=== PATIENT | female | born 1960 | race Caucasian/White ===

== ENCOUNTER 2016-10-25 14:52 | Observation (INO) | payer OTHER ==
[2016-10-25] MEDS ORDERED: SODIUM CHLORIDE 1,000 ML IV STA ×2 (15:00→17:25)
[2016-10-25 15:08] VITALS: BMI 23.6
--- NOTE | 2016-10-25 15:14 | PDOC ---
History of Present Illness - General History Source: Patient, Old Records Exam Limitations: No Limitations - History of Present Illness Initial Comments: The patient is a 56-year-old female, with a significant past medical history of SVT (status post ablation 2013) who presents with tachycardia since this morning. The patient reports that she woke up at 0530 today with indigestion and pressure-like chest pain . She states that the symptoms are persistent. She reports developing palpitations and notes that they are exacerbated on exertion. The patient notes a recent chip fracture of the left ankle and wears an aircast but denies calf pain. She denies recent illnesses, fevers, chills, cough, vomiting. Denies history of oral contraceptive use, pulmonary embolisms, unilateral calf swelling. PAST MEDICAL HISTORY: SVT, recent frequent UTIs PAST SURGICAL HISTORY: Hysterectomy FAMILY HISTORY: Mother: 2 MT; First at age 65. 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[employer] <Andrew Garcia - Last Filed: 10/25/16 19:02> - General History Source: Patient Exam Limitations: No Limitations <Macario Navarro - Last Filed: 10/25/16 19:06> - General Chief Complaint: Palpitations Stated Complaint: PALPITATIONS Time Seen by Provider: 10/25/16 15:00 Past History <Andrew Garcia - Last Filed: 10/25/16 19:02> - Past Medical History Cardiac Disorders: Yes (SVT/MVP) Diabetes: Yes Hypercholesterolemia: Yes - Psycho/Social/Smoking Cessation Hx Anxiety: Yes Suicidal Ideation: No Smoking Status: No Smoking History: Never smoked Have you smoked in the past 12 months: No Number of Cigarettes Smoked Daily: 0 Hx Alcohol Use: No Substance Use Type: None <Macario Navarro - Last Filed: 10/25/16 19:06> - Past Medical History Allergies/Adverse Reactions: Allergies Allergy/AdvReac Type Severity Reaction Status Date / Time exenatide microspheres Allergy Intermediate muscle Verified 10/25/16 15:17 [From Bydureon] welts/lumps very pruritic celecoxib [From Celebrex] Allergy Verified 10/25/16 15:17 erythromycin base Allergy Verified 10/25/16 15:18 levofloxacin [From Levaquin] Allergy Verified 10/25/16 15:17 morphine Allergy Verified 10/25/16 15:17 nitrofurantoin Allergy Verified 10/25/16 15:17 [From Macrobid] nitrofurantoin Allergy Verified 10/25/16 15:17 macrocrystalline [From Macrobid] Penicillins Allergy Verified 10/25/16 15:17 Sulfa (Sulfonamide Allergy Verified 10/25/16 15:17 Antibiotics) msg Allergy Uncoded 10/25/16 15:17 Home Medications: Ambulatory Orders Liraglutide [Victoza -] 1.2 mg SQ DAILY@0700 10/25/16 Lisinopril 5 mg PO DAILY 10/25/16 Metformin HCl [Glucophage] 2,000 mg PO HS 10/25/16 Simvastatin 20 mg PO HS 10/25/16 Solifenacin Succinate [Vesicare -] 5 mg PO DAILY 10/25/16 Ubidecarenone [Coq-10] 100 mg PO 10/25/16 Review of Systems - Review of Systems Able to Perform ROS?: Yes Comments:: GENERAL/CONSTITUTIONAL: No fever or chills. No weakness. HEAD, EYES, EARS, NOSE AND THROAT: No change in vision. No ear pain or discharge. No sore throat. CARDIOVASCULAR: (+) Chest pain, palpitations, dyspnea on exertion. RESPIRATORY: No cough, wheezing, or hemoptysis. GASTROINTESTINAL: No nausea, vomiting, diarrhea or constipation. GENITOURINARY: No dysuria, frequency, or change in urination. MUSCULOSKELETAL: (+) No muscle swelling or pain. No neck or back Left ankle aircast. SKIN: No rash NEUROLOGIC: No headache, vertigo, loss of consciousness, or change in strength/ sensation. ENDOCRINE: No increased thirst. No abnormal weight change. HEMATOLOGIC/LYMPHATIC: No anemia, easy bleeding, or history of blood clots. ALLERGIC/IMMUNOLOGIC: No hives or skin allergy. <Andrew Garcia - Last Filed: 10/25/16 19:02> *Physical Exam - Vital Signs Last Vital Signs Temp Pulse Resp BP Pulse Ox 98 F 126 H 20 132/100 100 10/25/16 14:54 10/25/16 15:23 10/25/16 15:23 10/25/16 15:23 10/25/16 15:23 - Physical Exam Comments: GENERAL: Awake, alert, and fully oriented, in no acute distress HEAD: No signs of trauma EYES: PERRLA, EOMI, sclera anicteric, conjunctiva clear ENT: Auricles normal inspection, hearing grossly normal, nares patent, oropharynx clear without exudates. Moist mucosa NECK: Normal ROM, supple, no lymphadenopathy, JVD, or masses LUNGS: Breath sounds equal, clear to auscultation bilaterally. No wheezes, and no crackles HEART: Tachycardia regular rhythm, normal S1 and S2, no murmurs, rubs or gallops ABDOMEN: Soft, nontender, normoactive bowel sounds. No guarding, no rebound. No masses EXTREMITIES: (+) With left ankle aircast otherwise, Normal range of motion, no edema. No clubbing or cyanosis. No cords, erythema, or tenderness NEUROLOGICAL: Cranial nerves II through XII grossly intact. Normal speech, normal gait SKIN: Warm, Dry, normal turgor, no rashes or lesions noted. <Andrew Garcia - Last Filed: 10/25/16 19:02> Heart Score/ECG Review #1 ECG reviewed & interpreted by me at: 14:55 10/25/16 15:07 NSr 125, no std/gianna, normal axis, normal intervals, QTC 447 msec <Macario Navarro - Last Filed: 10/25/16 19:06> ED Treatment Course - LABORATORY CBC & Chemistry Diagram: 10/25/16 15:06 10/25/16 15:06 - ADDITIONAL ORDERS Additional order review: Laboratory Results 10/25/16 15:10 Urine Color Yellow Urine Appearance Clear Urine pH 5.5 Ur Specific [place] <= 1.005 Urine Protein Negative Urine Glucose (UA) Negative Urine Ketones Negative Urine Blood Negative Urine Nitrite Negative Urine Bilirubin Negative Urine Urobilinogen 0.2 e.u/dl Ur Leukocyte Esterase Trace 10/25/16 15:06 RBC 4.67 MCV 84.2 MCHC 33.3 RDW 12.6 MPV 9.7 Neutrophils % Y Lymphocytes % Y - RADIOLOGY Radiograph Interpretation: 10/25/16 19:02 EXAM#: TYPE/EXAM: RESULT: [id number] CT/CHEST CTA HISTORY PROVIDED: Rule out PE. TECHNIQUE: Sequential axial images were obtained from the thoracic inlet through the domes of the diaphragm following the administration of intravenous contrast material. CTA pulmonary embolism protocol was utilized, including coronal and oblique coronal MIP images. There is good opacification of the central pulmonary vasculature with no filling defects suspicious for pulmonary embolism. The lung mckeon are free of pulmonary masses, areas of acute consolidation or pleural effusions. No mediastinal masses, fluid collections or lymphadenopathy are identified. The heart is not enlarged. Evaluation of the upper abdomen demonstrates no acute abnormalities. IMPRESSION: 1. No evidence of pulmonary embolism. 2. No acute pathology within the chest. Reported By: Oscar Limon MD 10/25/16 [id number] <Andrew Garcia - Last Filed: 10/25/16 19:02> - LABORATORY CBC & Chemistry Diagram: 10/25/16 15:06 10/25/16 15:06 <Macario Navarro - Last Filed: 10/25/16 19:06> Medical Decision Making - Medical Decision Making 10/25/16 18:[address] Medrano placed. Dr. Delacruz is environmental services manager. Awaiting call back. 10/25/16 18:31 Dr. Delacruz called into ED. Case discussed. Agreed to admit to hospitalist. <Andrew Garcia - Last Filed: 10/25/16 19:02> - Medical Decision Making 10/25/16 15:07 A portion of this note was documented by scribe services under my direction. I have reviewed the details of the note, within reason, and agree with the documentation with the following case summary and management plan written by me. Patient treated in the ED. Nursing notes are reviewed and incorporated into the medical decision-making. Vital signs reviewed. Peripheral IV access obtained by the nurse, laboratory studies are drawn and sent, reviewed and interpreted by myself. 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 Patient reports that she woke up with indigestion and pressure-like chest pain that pleuritic. She states that the symptoms are persistent. She developed some palpitations that worsened with exertion. Denies recent illnesses, fevers, chills, cough, vomiting. Denies history of oral contraceptive use, pulmonary embolisms, unilateral calf swelling. Patient does have a recent check fracture of the left ankle that she wears an Aircast but denies calf pain. Patient's EKG demonstrates sinus tachycardia without acute changes. However, patient does have a strong family history where her mother had from an [place] in the early 60s. Patient has not had a recent stress test or echocardiogram. The patient did follow up with Dr. Medrano when she had an SVT. We'll need to rule out myocardial infarction. We will also send a d-dimer to rule out PE. Labs. And admit to the hospital for further evaluation. 10/25/16 18:46 CBC, BMP 10/25/16 15:06 10/25/16 15:06 CMP Sodium 135 mmol/L (136-145) L 10/25/16 15:06 Potassium 4.8 mmol/L (3.5-5.1) D 10/25/16 15:06 Chloride 99 mmol/L (98-107) 10/25/16 15:06 Carbon Dioxide 24 mmol/L (22-28) 10/25/16 15:06 Anion Gap 12 (8-16) 10/25/16 15:06 BUN 19 mg/dl (7-18) H D 10/25/16 15:06 Creatinine 0.9 mg/dl (0.6-1.3) D 10/25/16 15:06 Creat Clearance w eGFR > 60 (>60) 10/25/16 15:06 Random Glucose 199 mg/dl (74-106) H D 10/25/16 15:06 Calcium 9.6 mg/dl (8.4-10.2) 10/25/16 15:06 Magnesium 1.6 mg/dL (1.8-2.4) L 10/25/16 15:06 Total Bilirubin 0.9 mg/dl (0.2-1.0) D 10/25/16 15:06 AST 19 U/L (10-42) 10/25/16 15:06 ALT 17 U/L (10-40) 10/25/16 15:06 Alkaline Phosphatase 62 U/L (32-92) 10/25/16 15:06 Creatine Kinase 77 IU/L (26-140) 10/25/16 15:06 Troponin I < 0.03 ng/ml (0.03-0.50) L 10/25/16 15:06 Total Protein 6.7 g/dl (6.4-8.3) 10/25/16 15:06 Albumin 4.3 g/dl (3.5-5.0) 10/25/16 15:06 TSH 1.34 uIU/ml (0.358-3.74) D 10/25/16 15:06 INR, PTT INR 1.13 (0.82-1.09) 10/25/16 15:07 D-dimer elevated. CTA Chest ordered to r/o PE. Pt was given 1.5L of IVF but pt remains persistent tachycardic. The patient still requires a cardiac and PE workup. Case discussed with [facility] hospitalist and Dr. Delacruz. Will admit the patient to tele admission for chest pain. Case discussed in detail with admitting physician including history, physical exam and ancillary studies. Admitting physician has assumed care for the patient, will follow all pending diagnostics and will complete the evaluation and treatment. 10/25/16 19:06 CTA reviewed. No PE. <Macario Navarro - Last Filed: 10/25/16 19:06> *DC/Admit/Observation/Transfer - Attestations Scribe Attestion: Documentation prepared by Andrew Garcia, acting as medical device assembler for Macario Navarro MD. <Andrew Garcia - Last Filed: 10/25/16 19:02> - Discharge Dispostion Admit: Yes <Macario Navarro - Last Filed: 10/25/16 19:06> Diagnosis at time of Disposition: Tachycardia Chest pain Qualifiers: Chest pain type: unspecified Qualified Code(s): R07.9 - Chest pain, unspecified - Discharge Dispostion Condition at time of disposition: Fair
[2016-10-25 15:26] LABS: PH,URINE 5.5 (4.5-8); URINE APPEARANCE Clear; URINE BILIRUBIN Negative (NEGATIVE); URINE BLOOD Negative (NEGATIVE); URINE COLOR YELLOW; URINE GLUCOSE (UA) Negative (NEGATIVE); URINE KETONE Negative (NEGATIVE); URINE LEUK ESTERASE Trace (NEGATIVE); URINE NITRITE Negative (NEGATIVE); URINE PROTEIN Negative (NEGATIVE); URINE UROBILINOGEN 0.2 E.U/dl (0.2-1.0)
[2016-10-25 15:27] LABS: MCH 28.1 pg (25.7-33.7); MCHC 33.3 g/dl (32.0-36.0); MEAN CELL VOLUME 84.2 fl (80-96); MEAN PLT VOLUME 9.7 fl (7.5-11.1); PLATELET COUNT 230 K/MM3 (134-434); RDW 12.6 % (11.6-15.6); WHITE BLOOD COUNT 16.8 K/mm3 (4.0-10.8)
[2016-10-25 15:41] LABS: ACTIVATED PTT 28.4 SECONDS (24.0-38.9)
[2016-10-25 15:44] LABS: ALBUMIN 4.3 g/dl (3.5-5.0); ALK PHOS 62 U/L (32-92); ANION GAP 12 (8-16); BILIRUBIN,TOTAL 0.9 mg/dl (0.2-1.0); CALCIUM 9.6 mg/dl (8.4-10.2); CO2 24 mmol/L (22-28); CREATININE 0.9 mg/dl (0.6-1.3); GLUCOSE,RANDOM 199 mg/dl (74-106); MAGNESIUM 1.6 mg/dL (1.8-2.4); SGOT/AST 19 U/L (10-42); SGPT/ALT 17 U/L (10-40); TOT PROT 6.7 g/dl (6.4-8.3)
[2016-10-25 15:45] LABS: INR 1.13 (0.82-1.09); PROTHROMBIN TIME (PATIENT) 12.6 SEC (10.2-13.0)
[2016-10-25 15:47] LABS: CPK(DFH) 77 IU/L (26-140)
[2016-10-25 16:25] LABS: TROPONIN I (DFP) < 0.03 ng/ml (0.03-0.50)
[2016-10-25 17:32] LABS: THYROID STIMULATING HORMONE 1.34 uIU/ml (0.358-3.74)
[2016-10-25] MEDS ORDERED: ASPIRIN 81 MG CHEWABLE TABLETS PO ONE (17:40)
[2016-10-25] MEDS ORDERED: ASPIRIN 81 MG CHEWABLE TABLETS ONE (17:45)
[2016-10-25 18:00] LABS: PLATELET ESTIMATE ADEQUATE (NORMAL)
--- NOTE | 2016-10-25 20:15 | HP ---
CHIEF COMPLAINT: Chest Pain PCP: Dr. August HISTORY OF PRESENT ILLNESS: This is a 56 y/o woman with a significant medical history of SVT (Ablation 2013 ) Diabetes Mellitus, HLD. Who presents to the emergency department with pleuritic chest pain since 0530 am today. Patient reports the CP radiates across her chest, with SOB on exertion. She reports her resting HR 120-130 on exertion 155, while at work today. Patient reports having a fall 2 weeks ago, sustaining a chip bone to her left ankle, using an air cast. Patient reports having a recent tooth infection with pending root canal procedure. Patient reports having chills. Patient denies fever, AP, N/V/D, constipation, dysuria. Patient denies calf pain, swelling, warmth or redness. Patient reports having familial hx- Mother [place] x2. Patient has not had a recent Echo or Stress Test, nor has she seen a Waterproof Coating Machine Tender since her Ablation in 2013. ER course was notable for: (1) EKG ST (2) WBC 16.9 (3) Cardiac Enzymes Neg x1 (4) CTA- negative for PE Recent Travel: None PAST MEDICAL HISTORY: See HPI PAST SURGICAL HISTORY: Cardiac Ablation 2013 Bladder Mesh 2008 Bladder Lift 2001 Hysterectomy Social History: Smoking: Never Alcohol: Occasional Drugs: None Family History: Mother: [place] x2, Age 65, age 69 with 2nd [place], DM, HTN Allergies exenatide microspheres [From Bydureon] Allergy (Intermediate, Verified 10/25/16 15:17) muscle welts/lumps very pruritic celecoxib [From Celebrex] Allergy (Verified 10/25/16 15:17) erythromycin base Allergy (Verified 10/25/16 15:18) levofloxacin [From Levaquin] Allergy (Verified 10/25/16 15:17) morphine Allergy (Verified 10/25/16 15:17) nitrofurantoin [From Macrobid] Allergy (Verified 10/25/16 15:17) nitrofurantoin macrocrystalline [From Macrobid] Allergy (Verified 10/25/16 15:17 ) Penicillins Allergy (Verified 10/25/16 15:17) Sulfa (Sulfonamide Antibiotics) Allergy (Verified 10/25/16 15:17) msg Allergy (Uncoded 10/25/16 15:17) HOME MEDICATIONS: Home Medications Medication Instructions Recorded Liraglutide [Victoza -] 1.2 mg SQ DAILY@0700 10/25/16 Lisinopril 5 mg PO DAILY 10/25/16 Metformin HCl [Glucophage] 2,000 mg PO HS 10/25/16 Simvastatin 20 mg PO HS 10/25/16 Solifenacin Succinate [Vesicare -] 5 mg PO DAILY 10/25/16 Ubidecarenone [Coq-10] 100 mg PO 10/25/16 REVIEW OF SYSTEMS CONSTITUTIONAL: chills Absent: fever, diaphoresis, generalized weakness, malaise, loss of appetite, weight change HEENT: Absent: rhinorrhea, nasal congestion, throat pain, throat swelling, difficulty swallowing, mouth swelling, ear pain, eye pain, visual changes CARDIOVASCULAR: chest pain Absent: syncope, palpitations, irregular heart rate, lightheadedness, peripheral edema RESPIRATORY: dyspnea with exertion Absent: cough, shortness of breath, orthopnea, wheezing, stridor, hemoptysis GASTROINTESTINAL: Absent: abdominal pain, abdominal distension, nausea, vomiting, diarrhea, constipation, melena, hematochezia GENITOURINARY: Absent: dysuria, frequency, urgency, hesitancy, hematuria, flank pain, genital pain MUSCULOSKELETAL: Absent: myalgia, arthralgia, joint swelling, back pain, neck pain SKIN: Absent: rash, itching, pallor HEMATOLOGIC/IMMUNOLOGIC: Absent: easy bleeding, easy bruising, lymphadenopathy, frequent infections ENDOCRINE: Absent: unexplained weight gain, unexplained weight loss, heat intolerance, cold intolerance NEUROLOGIC: headache Absent: focal weakness or paresthesias, dizziness, unsteady gait, seizure, mental status changes, bladder or bowel incontinence PSYCHIATRIC: Absent: anxiety, depression, suicidal or homicidal ideation, hallucinations. PHYSICAL EXAMINATION Vital Signs - 24 hr 10/25/16 19:36 Pulse Rate [ 117 H Right Radial] Respiratory 18 Rate Blood Pressure 103/57 [Left Arm] O2 Sat by Pulse 97 Oximetry (%) GENERAL: Awake, alert, and fully oriented, in no acute distress. HEAD: Normal with no signs of trauma. EYES: Pupils equal, round and reactive to light, extraocular movements intact, sclera anicteric, conjunctiva clear. No lid lag. EARS, NOSE, THROAT: Ears normal, nares patent, oropharynx clear without exudates. Moist mucous membranes. NECK: Normal range of motion, supple without lymphadenopathy, JVD, or masses. LUNGS: Breath sounds equal, clear to auscultation bilaterally. No wheezes, and no crackles. No accessory muscle use. HEART: Tachycardiac rate and rhythm, normal S1 and S2 without murmur, rub or gallop. ABDOMEN: Soft, nontender, not distended, normoactive bowel sounds, no guarding, no rebound, no masses. No hepatomegaly or splenomegaly. MUSCULOSKELETAL: Normal range of motion at all joints. No bony deformities. No CVA tenderness. Tenderness to lateral aspect left foot UPPER EXTREMITIES: 2+ pulses, warm, well-perfused. No cyanosis. No clubbing. No peripheral edema. LOWER EXTREMITIES: 2+ pulses, warm, well-perfused. No calf tenderness. No peripheral edema. +aircast to LLE NEUROLOGICAL: Cranial nerves II-XII intact. Normal speech. Normal gait. PSYCHIATRIC: Cooperative. Good eye contact. Appropriate mood and affect. SKIN: Warm, dry, normal turgor, no rashes or lesions noted, normal capillary refill. Laboratory Results - last 24 hr 10/25/16 10/25/16 10/25/16 15:06 15:06 15:06 WBC 16.8 H D RBC 4.67 Hgb 13.1 Hct 39.3 MCV 84.2 MCHC 33.3 RDW 12.6 Plt Count 230 D MPV 9.7 Neutrophils % 92.0 H D Lymphocytes % 2.0 L D Monocytes % 6.0 Platelet Estimate Adequate INR PTT (Actin FS) D-Dimer Sodium 135 L Potassium 4.8 D Chloride 99 Carbon Dioxide 24 Anion Gap 12 BUN 19 H D Creatinine 0.9 D Creat Clearance w eGFR > 60 POC Glucometer Random Glucose 199 H D Calcium 9.6 Magnesium 1.6 L Total Bilirubin 0.9 D AST 19 ALT 17 Alkaline Phosphatase 62 Creatine Kinase 77 Troponin I < 0.03 L Total Protein 6.7 Albumin 4.3 TSH 1.34 D Urine Color Urine Appearance Urine pH Ur Specific [place] Urine Protein Urine Glucose (UA) Urine Ketones Urine Blood Urine Nitrite Urine Bilirubin Urine Urobilinogen Ur Leukocyte Esterase 10/25/16 10/25/16 10/25/16 15:07 15:10 22:15 WBC RBC Hgb Hct MCV MCHC RDW Plt Count MPV Neutrophils % Lymphocytes % Monocytes % Platelet Estimate INR 1.13 PTT (Actin FS) 28.4 D-Dimer 392 H Sodium Potassium Chloride Carbon Dioxide Anion Gap BUN Creatinine Creat Clearance w eGFR POC Glucometer Random Glucose Calcium Magnesium Total Bilirubin AST ALT Alkaline Phosphatase Creatine Kinase 66 Troponin I < 0.03 L Total Protein Albumin TSH Urine Color Yellow Urine Appearance Clear Urine pH 5.5 Ur Specific [place] <= 1.005 Urine Protein Negative Urine Glucose (UA) Negative Urine Ketones Negative Urine Blood Negative Urine Nitrite Negative Urine Bilirubin Negative Urine Urobilinogen 0.2 e.u/dl Ur Leukocyte Esterase Trace 10/25/16 22:27 WBC RBC Hgb Hct MCV MCHC RDW Plt Count MPV Neutrophils % Lymphocytes % Monocytes % Platelet Estimate INR PTT (Actin FS) D-Dimer Sodium Potassium Chloride Carbon Dioxide Anion Gap BUN Creatinine Creat Clearance w eGFR POC Glucometer 139 Random Glucose Calcium Magnesium Total Bilirubin AST ALT Alkaline Phosphatase Creatine Kinase Troponin I Total Protein Albumin TSH Urine Color Urine Appearance Urine pH Ur Specific [place] Urine Protein Urine Glucose (UA) Urine Ketones Urine Blood Urine Nitrite Urine Bilirubin Urine Urobilinogen Ur Leukocyte Esterase Heart Score/ECG Review #1 10/25/16 15:07 NSr 125, no std/gianna, normal axis, normal intervals, QTC 447 msec ASSESSMENT/PLAN: This is a 56 y/o woman with a PMHx of: SVT (Ablation), HLD, DM. Placed on Tele Observation for Chest Pain, Palpitations for further evaluation of their emergent condition. Plan: 1. Chest Pain - r/o MN vs PE - Heart Score 4 - BOLIVAR Score 1 - Tele monitoring - Serial Enzymes- neg x1 - D- Dimer elevated 390 - CTA- neg PE - Asa given in ED, will continue - Appreciate Cardiology Consult- Notified by ED - Echo in am - Stress Test in am - EKG- reviewed - Chest Xray- reviewed - HgbA1C in am 2. Tachycardia - See Above - 2L NS bolus given ~ P 110s - Pulse at rest 110's-120's - Will give gentle IVF 3. Diabetes Mellitus - Not Controlled - BGMs - Hold Metformin x 2 days (CTA) - Continue Victoza - HgbA1C in am - Monitor renal function 4. Leukocytosis - Possibly secondary to tooth infection vs inflammatory process - Blood Cultures-pending - Patient is afebrile, reports chills, ?Sepsis - Will repeat CBC in am - Will hold off on ABX for now, wait and monitor - Monitor vitals 5. HLD - Continue home med - Monitor LFTs 6. FEN - NS@60cc/hr - Replete lytes prn - Low Na , 1800 ADA Diet 7. DVT Prophylaxis - OOB - SCDs - Heparin SQ Code Status: Full Code Problem List - Problem (1) Chest pain Code(s): R07.9 - CHEST PAIN, UNSPECIFIED Qualifiers: Chest pain type: unspecified Qualified Code(s): R07.9 - Chest pain, unspecified (2) Tachycardia Code(s): R00.0 - TACHYCARDIA, UNSPECIFIED (3) Diabetes mellitus Code(s): E11.9 - TYPE 2 DIABETES MELLITUS WITHOUT COMPLICATIONS (4) HLD (hyperlipidemia) Code(s): E78.5 - HYPERLIPIDEMIA, UNSPECIFIED (5) DVT prophylaxis Code(s): [id number] - Visit type - Emergency Visit Emergency Visit: Yes ED Registration Date: 10/25/16 Care time: The patient presented to the Emergency Department on the above date and was hospitalized for further evaluation of their emergent condition. - New Patient This patient is new to me today: Yes Date on this admission: 10/25/16 - Critical Care Critical Care patient: No
[2016-10-25] MEDS ORDERED: ACETAMINOPHEN 325 MG TABLET (FP) PO PRN (21:58)
[2016-10-25] MEDS ORDERED: PATIENT'S OWN MEDICATION (NON-FORMULARY) (Simvastatin [Simvastatin] 20 MG) PO SCH (22:00)
[2016-10-25] MEDS ORDERED: ATORVASTATIN CA 10 MG TABLET (FP) PO SCH (22:00)
[2016-10-25] MEDS: HEPARIN NA (PORCINE) 5,000 UNITS/ML 1ML VIAL SQ SCH (22:08)
[2016-10-25 23:05] LABS: CPK(DFH) 66 IU/L (26-140)
[2016-10-25 23:31] LABS: TROPONIN I (DFP) < 0.03 ng/ml (0.03-0.50)
[2016-10-25] MEDS ORDERED: SODIUM CHLORIDE 1,000 ML IV SCH (23:45)
[2016-10-26] MEDS: HEPARIN NA (PORCINE) 5,000 UNITS/ML 1ML VIAL SQ SCH ×2 (06:03→14:54)
[2016-10-26] MEDS ORDERED: LIRAGLUTIDE SQ SCH (07:00)
--- NOTE | 2016-10-26 07:13 | PN ---
Physical Exam: SUBJECTIVE: Patient seen and examined,reports feeling well, ambulatory at bedside, reports one episode of chest pressure at rest early this AM. denies any dyspnea upon exertion. OBJECTIVE:his is a 56 y/o woman with a significant medical history of SVT ( Ablation 2013), NIDDM, HLD, frequent UTI's Vital Signs Period Temp Pulse Resp BP Sys/Balderas Pulse Ox Last 24 Hr 98.5 F-99.6 F 95-117 18-19 97-122/55-67 94-98 Vital Signs - 8 hr 10/26/16 06:00 Temperature 98.9 F Pulse Rate 95 H Respiratory 19 Rate Blood Pressure 97/55 O2 Sat by Pulse 98 Oximetry (%) GENERAL: The patient is awake, alert, and fully oriented, in no acute distress. HEAD: Normal with no signs of trauma. EYES: PERRL, extraocular movements intact, sclera anicteric, conjunctiva clear. No ptosis. ENT: Ears normal, nares patent, oropharynx clear without exudates, moist mucous membranes. pain to right upper 1st molar, erythema noted to gumline, facial symmetry NECK: Trachea midline, full range of motion, supple. LUNGS: Breath sounds equal, clear to auscultation bilaterally, no wheezes, no crackles, no accessory muscle use. HEART: Regular rate and rhythm, S1, S2 without murmur, rub or gallop. ABDOMEN: Soft, nontender, nondistended, normoactive bowel sounds, no guarding, no rebound, no hepatosplenomegaly, no masses. EXTREMITIES: 2+ pulses, warm, well-perfused, no edema. point tenderness noted below the lateral malleus air cast in place NEUROLOGICAL: Cranial nerves II through XII grossly intact. Normal speech, gait not observed. PSYCH: Normal mood, normal affect. SKIN: Warm, dry, normal turgor, no rashes or lesions noted Laboratory Results - last 24 hr 10/25/16 10/25/16 10/26/16 22:15 22:27 06:42 POC Glucometer 139 118 Creatine Kinase 66 Troponin I < 0.03 L Active Medications Generic Name Dose Route Start Last Admin Trade Name Freq PRN Reason Stop Dose Admin Acetaminophen 650 mg 10/25/16 21:58 Tylenol - PO Q6H PRN FEVER OR PAIN Atorvastatin Calcium 10 mg 10/25/16 22:00 10/25/16 22:07 Lipitor - PO Not Given HS TEA Heparin Sodium (Porcine) 5,000 unit 10/25/16 22:00 10/26/16 06:03 Heparin - SQ 5,000 unit TID TEA Administration Sodium Chloride 1,000 mls @ 60 mls/hr 10/25/16 23:45 10/26/16 00:06 Normal Saline - IV 60 mls/hr ASDIR TEA Administration Lisinopril 5 mg 10/26/16 10:00 Prinivil PO DAILY TEA Non-Formulary Medication 1.2 mg 10/26/16 07:00 Liraglutide [Victoza -] SQ DAILY@0700 TEA Solifenacin 5 mg 10/26/16 10:00 Vesicare - PO DAILY [facility] ASSESSMENT/PLAN: 1.card Chest Pain r/o acs - cta of chest no PE - troponin x 3 wnl - treadmill stress test, negative for ischemia - pending echo - case disucssed with Dr Gaxiola (covering for [place]) agree with plan and will evaluate patient today. tachycardia - s/p ablation 2013, on cardiac monitoiring HR 110's after 2L NS, pt is asymptomatic - appreciate cardiology input 2) endo niddm - hold metforimin until 10/28 - continue victoza (pt to bring in her home medication) - pending hgb a1c 3) ID leukocytosis likely secondary to leukemoid reaction vs dental abscess -pt afebrile, leukocytosis resolved - will order augmentin, pt has take amoxicllin and augmentin in the past and denies any adverse reaction FEN - Replete lytes prn - Low Na , 1800 ADA Diet DVT Prophylaxis - OOB - SCDs - Heparin SQ Code Status: Full Code
[2016-10-26 08:15] LABS: BASOPHIL 0.5 % (0-2.0); EOSINOPHIL 10.1 % (0-4.5); MCH 28.7 pg (25.7-33.7); MCHC 33.6 g/dl (32.0-36.0); MEAN CELL VOLUME 85.4 fl (80-96); MEAN PLT VOLUME 9.5 fl (7.5-11.1); NEUTROPHILS 71.4 % (42.8-82.8); PLATELET COUNT 230 K/MM3 (134-434); RDW 12.9 % (11.6-15.6); WHITE BLOOD COUNT 9.1 K/mm3 (4.0-10.8)
[2016-10-26 08:27] LABS: ANION GAP 8 (8-16); CALCIUM 9.2 mg/dl (8.4-10.2); CO2 25 mmol/L (22-28); CREATININE 0.6 mg/dl (0.6-1.3); GLUCOSE,RANDOM 139 mg/dl (74-106); MAGNESIUM 1.7 mg/dL (1.8-2.4); PHOSPHOROUS 3.8 mg/dl (2.5-4.6)
[2016-10-26 08:28] LABS: CPK(DFH) 62 IU/L (26-140)
[2016-10-26 08:32] LABS: CHOLESTEROL 177 mg/dl
[2016-10-26] MEDS ORDERED: MAGNESIUM SULFATE 2 GM in SODIUM CHLORIDE 100 ML IVPB ONE (09:01)
[2016-10-26] MEDS ORDERED: MAGNESIUM SULF 50% (8.12 MEQ/2 ML-1 GM VIAL) IVPB ONE (09:45)
[2016-10-26 09:53] LABS: TROPONIN I (DFP) < 0.03 ng/ml (0.03-0.50)
[2016-10-26] MEDS ORDERED: LISINOPRIL 5 MG TABLET (FP) PO SCH (10:00)
[2016-10-26] MEDS ORDERED: SOLIFENACIN SUCCINATE 5 MG TAB (FP) PO SCH (10:00)
--- NOTE | 2016-10-26 13:26 | TRE ---
Protocol Name : SAUNDRA Max Work Load (METS*10) : 48 Time In Exercise Phase : 00:03:00 Max. Systolic BP : 142 mmHg Max Diastolic BP : 70 mmHg Max Heart Rate : 153 BPM Max Predicted Heart Rate : 162 BPM Attending Physician : DR. GRAHAM Reason For Termination : Target Heart Rate Achieved Reason for Test : CHEST PAIN Stress Protocol : SAUNDRA Rest HR : 104 BPM PeakEx METs : 4.6 METS Recovery ECG Response (OLD) : Diagnosis : Negative stress test. no diagnostic ecg changes, no ischemic symptoms. Confirmed by GLADYS RAMOS, TINA ([id number]) on 10/26/2016 1:26:26 PM
[2016-10-26 14:18] VITALS: BP 114/59; PULSE 93; TEMP 97.7
--- NOTE | 2016-10-26 15:09 | EKG ---
Test Reason : Blood Pressure : / mmHG Vent. Rate : 125 BPM Atrial Rate : 125 BPM P-R Int : 142 ms QRS Dur : 092 ms QT Int : 310 ms P-R-T Axes : 059 063 061 degrees QTc Int : 447 ms SINUS TACHYCARDIA NO PREVIOUS ECGS AVAILABLE Confirmed by MD GRIS, NADIYA ([id number]) on 10/26/2016 3:09:15 PM Referred By: ISABELLE DWYER Confirmed By:NADIYA LANDRY MD
--- NOTE | 2016-10-26 19:00 | CON.CARD ---
Cardiology Consult (text) - Consultation Consultation Note: 6 y/o woman with a significant medical history of SVT (Ablation 2013) Diabetes Mellitus, HLD. Who presents to the emergency department with pleuritic chest pain since 0530 am today. Patient reports the CP radiates across her chest, with SOB on exertion. She reports her resting HR 120-130 on exertion 155, while at work today. Patient reports having a fall 2 weeks ago, sustaining a chip bone to her left ankle, using an air cast. Patient reports having a recent tooth infection with pending root canal procedure. Patient reports having chills. Patient denies fever, AP, N/V/D, constipation, dysuria. Patient denies calf pain, swelling, warmth or redness. Patient reports having familial hx- Mother DC x2. Patient has not had a recent Echo or Stress Test, nor has she seen a C++ Quant Developer since her Ablation in 2013. ER course was notable for: (1) EKG ST (2) WBC 16.9 (3) Cardiac Enzymes Neg x1 (4) CTA- negative for PE Recent Travel: None PAST MEDICAL HISTORY: See HPI PAST SURGICAL HISTORY: Cardiac Ablation 2013 Bladder Mesh 2008 Bladder Lift 2001 Hysterectomy Social History: Smoking: Never Alcohol: Occasional Drugs: None Family History: Mother: DC x2, Age 65, age 69 with 2nd DC, DM, HTN Ambulatory Orders Liraglutide [Victoza -] 1.2 mg SQ DAILY@0700 10/25/16 Lisinopril 5 mg PO DAILY 10/25/16 Metformin HCl [Glucophage] 2,000 mg PO 10/25/16 Simvastatin 20 mg PO 10/25/16 Solifenacin Succinate [Vesicare -] 5 mg PO DAILY 10/25/16 Ubidecarenone [Coq-10] 100 mg PO 10/25/16 Acetaminophen [Tylenol .Regular Strength -] 650 mg PO Q6H PRN #0 tablet Amoxicillin/Potassium Clav [Augmentin 875-125 Tablet] 1 each PO BID #14 tablet 10/26/16 Current Medications Acetaminophen (Tylenol -) 650 mg PO Q6H PRN PRN Reason: FEVER OR PAIN Atorvastatin Calcium (Lipitor -) 10 mg PO [facility] Last Admin: 10/25/16 22:07 Dose: Not Given Heparin Sodium (Porcine) (Heparin -) 5,000 unit SQ TID [facility] Last Admin: 10/26/16 14:54 Dose: Not Given Lisinopril (Prinivil) 5 mg PO DAILY [facility] Last Admin: 10/26/16 09:42 Dose: Not Given Non-Formulary Medication (Liraglutide [Victoza -]) 1.2 mg SQ DAILY@0700 [facility] Solifenacin (Vesicare -) 5 mg PO DAILY [facility] Last Admin: 10/26/16 09:42 Dose: 5 mg Vital Signs - 24 hr 10/25/16 10/25/16 10/25/16 19:36 22:07 23:46 Temperature 98.5 F 99.6 F Pulse Rate 115 H 113 H Pulse Rate [ 117 H Right Radial] Respiratory 18 18 18 Rate Blood Pressure 122/67 99/57 Blood Pressure 103/57 [Left Arm] O2 Sat by Pulse 97 94 L 96 Oximetry (%) 10/26/16 10/26/16 06:00 14:17 Temperature 98.9 F 97.7 F Pulse Rate 95 H 93 H Pulse Rate [ Right Radial] Respiratory 19 16 Rate Blood Pressure 97/55 114/59 Blood Pressure [Left Arm] O2 Sat by Pulse 98 99 Oximetry (%) Intake & Output 10/24/16 10/25/16 10/26/16 10/27/16 07:59 07:59 07:59 07:59 Intake Total 2800 400 Balance 2800 400 Weight 146 lb CBC, BMP 10/26/16 07:40 10/26/16 07:40 Laboratory Tests 10/25/16 10/25/16 10/25/16 15:06 15:06 15:07 D-Dimer 392 H Hemoglobin A1c % Magnesium 1.6 L AST 19 ALT 17 Alkaline Phosphatase 62 Creatine Kinase 77 Troponin I < 0.03 L Albumin 4.3 Triglycerides Cholesterol Total LDL Cholesterol HDL Cholesterol TSH 1.34 D 10/25/16 10/26/16 10/26/16 22:15 07:40 07:40 D-Dimer Hemoglobin A1c % 5.9 D Magnesium 1.7 L AST ALT Alkaline Phosphatase Creatine Kinase 66 Troponin I < 0.03 L Albumin Triglycerides Cholesterol Total LDL Cholesterol HDL Cholesterol TSH 10/26/16 10/26/16 07:40 07:40 D-Dimer Hemoglobin A1c % Magnesium AST ALT Alkaline Phosphatase Creatine Kinase Troponin I < 0.03 L Albumin Triglycerides 123 D Cholesterol 177 Total LDL Cholesterol 110 HDL Cholesterol 42 TSH
--- NOTE | 2016-10-27 14:26 | EKG ---
Test Reason : Blood Pressure : / mmHG Vent. Rate : 095 BPM Atrial Rate : 095 BPM P-R Int : 156 ms QRS Dur : 094 ms QT Int : 366 ms P-R-T Axes : 069 064 057 degrees QTc Int : 459 ms NORMAL SINUS RHYTHM NORMAL ECG WHEN COMPARED WITH ECG OF 25-OCT-2016 14:51, NO SIGNIFICANT CHANGE WAS FOUND Confirmed by MARIAM OH MD ([id number]) on 10/27/2016 2:25:35 PM Referred By: DAMARI PERRY Confirmed By:MARIAM OH MD
== END 2016-10-26 20:20 | disposition home or self-care (01) ==
LOC: FER 14:52 → FM/S 19:21 → INTOOBSV 19:21
PROVIDERS: ADMIT Internal Medicine; ATTEND Nurse Practitioner Family
PROC: 3E033GC Introduction of Other Therapeutic Substance into Peripheral Vein, Percutaneous Approach (ICD-10-PCS; principal; 2016-10-25)
PROC: 3E0337Z Introduction of Electrolytic and Water Balance Substance into Peripheral Vein, Percutaneous Approach (ICD-10-PCS; 2016-10-25)
DX: R07.9 Chest pain, unspecified (principal); R00.0 Tachycardia, unspecified; E11.9 Type 2 diabetes mellitus without complications; D72.829 Elevated white blood cell count, unspecified; E78.5 Hyperlipidemia, unspecified; Z90.710 Acquired absence of both cervix and uterus; Z91.81 History of falling
CPT/HCPCS: 36415; 71275-TC; 80048; 80053; 80061; 81003; 82550; 83036; 83735; 84100; 84443; 84484; 85025; 85379; 85610; 85730; 87040; 87086; 93005; 93010; 93017; 93018; 93306-TC; 99285-25; G0378; J1644

== ENCOUNTER 2019-03-04 14:57 | Emergency (ER) | payer OTHER ==
[2019-03-04 15:12] VITALS: BP 122/80; PULSE 89; TEMP 98.6; BMI 23.2
[2019-03-04] MEDS ORDERED: LIDOCAINE 5% TOPICAL PATCH TP ONE (15:27)
--- NOTE | 2019-03-04 15:35 | PDOC ---
Documentation entered by Guevara Calixto SCRIBE, acting as scribe for Fernanda Andrews MD. Fernanda Andrews MD: This documentation has been prepared by the Durga mejias Xhesika, SCRIBE, under my direction and personally reviewed by me in its entirety. I confirm that the documentation accurately reflects all work, treatment, procedures, and medical decision making performed by me. History of Present Illness - General Chief Complaint: Back Pain Stated Complaint: lower back pain History Source: Patient Exam Limitations: No Limitations - History of Present Illness Initial Comments: 03/04/19 15:35 The patient is a 58 year old female with a significant past medical history of SVT/MVP, DM, HLD, and bulging disks who presents to the ED with lower and mid back pain, and R shoulder soreness after straining to help a bariatric patient on the weight scale at 8am. Patient is an employee (RN) here at [employer] , she was trying to weigh a bariatric patient that was going into surgery, they got her to stand, however, that patient eased down to the floor. Pt notes she strained her back while trying to keep the patient from falling. Patient denies any other trauma, hitting her head or LOC. Patient notes her pain/ soreness is a sharp pain that radiates across her back, that is worsened with twisting and turning. Patient notes she took Motrin with mild relief of symptoms. Denies chest pain, SOB, palpitation, dizziness, weakness, N, V, abdominal pain, bladder and bowel problems, leg tingling/swelling. Allergies: exenatide microspheres, celecoxib, erythromycin base, Sulfa, msg Past Medical History: as documented in EMR/HPI Social history: No tobacco, occasional alcohol use. Surgical history: PARTIAL LEFT MINESECTOMY Meds: as documented in EMR Family history: noncontributory PMD: Jose Manuel Courtney Past History - Past Medical History Allergies/Adverse Reactions: Allergies Allergy/AdvReac Type Severity Reaction Status Date / Time exenatide microspheres Allergy Intermediate muscle Verified 03/04/19 14:58 [From Bydureon] welts/lumps very pruritic celecoxib [From Celebrex] Allergy Verified 03/04/19 14:58 erythromycin base Allergy Verified 03/04/19 14:58 Sulfa (Sulfonamide Allergy Verified 03/04/19 14:58 Antibiotics) msg Allergy Uncoded 03/04/19 14:58 Home Medications: Ambulatory Orders Lisinopril 5 mg PO DAILY 10/25/16 Metformin HCl [Glucophage] 2,000 mg PO HS 10/25/16 Simvastatin 20 mg PO HS 10/25/16 Solifenacin Succinate [Vesicare -] 5 mg PO DAILY 10/25/16 Ubidecarenone [Coq-10] 100 mg PO DAILY 10/25/16 Solifenacin Succinate [Vesicare] 10 mg PO DAILY tablet 11/29/16 Cyclobenzaprine HCl [Flexeril 10 mg] 10 mg PO TID PRN #12 tablet 03/04/19 Cardiac Disorders: Yes (SVT/MVP) Diabetes: Yes HTN: No Hypercholesterolemia: Yes - Surgical History Orthopedic Surgery: Yes (PARTIAL LEFT MINESECTOMY) - Suicide/Smoking/Psychosocial Hx Smoking Status: No Smoking History: Never smoked Have you smoked in the past 12 months: No Number of Cigarettes Smoked Daily: 0 Hx Alcohol Use: Yes (OCCASIONAL) Drug/Substance Use Hx: No Substance Use Type: None Hx Substance Use Treatment: No Review of Systems - Review of Systems Able to Perform ROS?: Yes Comments:: 03/04/19 15:35 Review of Systems Abdomen: no abdominal pain Genitorurinary: no urinary retention or incontinence, no dysuria, urgency or frequency. MUSCULOSKELETAL: No joint pain and swelling. No arthralgias. +back pain. +neck pain Back: (+) lower back pain SKIN: no redness or skin changes, no discharge, no rash. No wounds. Hematologic: no easy bruising/bleeding. NEUROLOGIC: No weakness, numbness or tingling. Allergic/Immunologic: codeine allergy All other systems reviewed and negative, or as documented in HPI. 03/04/19 15:37 *Physical Exam - Vital Signs Last Vital Signs Temp Pulse Resp BP Pulse Ox 98.6 F 89 20 122/80 97 03/04/19 14:58 03/04/19 14:58 03/04/19 14:58 03/04/19 14:58 03/04/19 14:58 - Physical Exam Comments: 03/04/19 15:35 General: NAD, well appearing, GCS 15 Abdomen: soft, no tenderness, nondistended Vascular: 2+ DP pulses symmetric and equal. Back: no midline tenderness, no stepoffs, FROM. (+) R paravertebral lower lumbar tenderness. (+) R trapezius tenderness and lateral cervical tenderness. MSK: soft compartments, Cap refill <2 sec. 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 Plantar flexion and dorsiflexion 5/5. FROM. Sensation grossly intact to light touch. Neuro: alert, no focal neurologic deficits, ambulatory, gait stable Skin: color normal color, warm and well perfused. Cap refill <2 sec. no ecchymosis, no wounds. Medical Decision Making - Medical Decision Making 03/04/19 15:27 Vital Signs Temp Pulse Resp BP Pulse Ox 98.6 F 89 20 122/80 97 03/04/19 14:58 03/04/19 14:58 03/04/19 14:58 03/04/19 14:58 03/04/19 14:58 vs reviewed, wnl likely lumbar and cervical strain/sprain due to strain while helping an obese patient no fall, no neuro changes, ambulatory no direct trauma no indication for imaging at this time. declined analgesia here ok with lido patch, rx flexeril prn for spasms prn motrin/tylenol as needed dc in stable condition, rest suppportive care and avoid strenous activity. 03/04/19 15:28 *DC/Admit/Observation/Transfer Diagnosis at time of Disposition: Lumbar back sprain Qualifiers: Encounter type: initial encounter Qualified Code(s): S33.5XXA - Sprain of ligaments of lumbar spine, initial encounter Acute cervical sprain Qualifiers: Encounter type: initial encounter Qualified Code(s): S13.9XXA - Sprain of joints and ligaments of unspecified parts of neck, initial encounter - Discharge Dispostion Disposition: HOME Condition at time of disposition: Improved - Prescriptions Prescriptions: Cyclobenzaprine HCl [Flexeril 10 mg] 10 mg PO TID PRN #12 tablet PRN Reason: Muscle Spasms - Referrals Referrals: Gui Trujillo MD [Staff Physician] - Lokesh Cardona MD [Staff Physician] - - Patient Instructions Printed Discharge Instructions: DI for Low Back Pain, DI for Cervical Muscle Strain Additional Instructions: you most likely have musculoskeletal strain avoid heavy lifting or strenuous activity to minimize further injury flexeril is a muscle relaxant, take three times a day as needed may cause sleepiness, do not drive or operate machinery or take with alcohol. topical lidoderm patch to the area affected, 12 hours on and 12 hours off.. May take ibuprofen 400-600mg and/or tylenol 650 to 975 mg every 6 hours as needed for mild to moderate pain, available over the counter. This does not require narcotics, as it will precipitate injuries and falls. continue with range of motion exercises, as this will facilitate the healing process; avoid being bed bound and immobile. Follow up with primary doctor/specialist services provided as well. orthopedics referrals given. This should heal over the next 3-5 days. - Post Discharge Activity Forms/Work/School Notes: Back to Work
[2019-03-04] MEDS ORDERED: LIDOCAINE 5% TOPICAL PATCH ONE (15:38)
== END 2019-03-04 15:44 | disposition home or self-care (01) ==
LOC: FER 14:57
DX: Z91.09 Other allergy status, other than to drugs and biological substances (principal); E11.9 Type 2 diabetes mellitus without complications; E78.00 Pure hypercholesterolemia, unspecified; I47.1 Supraventricular tachycardia; S33.5XXA Sprain of ligaments of lumbar spine, initial encounter; S13.9XXA Sprain of joints and ligaments of unspecified parts of neck, initial encounter; W22.8XXA Striking against or struck by other objects, initial encounter; Y93.89 Activity, other specified; Y92.238 Other place in hospital as the place of occurrence of the external cause; Y99.0 Civilian activity done for income or pay
CPT/HCPCS: 99283-25

== ENCOUNTER 2019-08-17 01:03 | Emergency (ER) | payer OTHER ==
[2019-08-17 01:10] VITALS: BP 133/94; PULSE 104; TEMP 97.9; BMI 23.3
[2019-08-17] MEDS ORDERED: methylPREDNISolone NA SUCC 125 MG/2 ML VIAL ONE (01:19)
[2019-08-17] MEDS ORDERED: methylPREDNISolone NA SUCC 125 MG/2 ML VIAL IVPB ONE (01:20)
--- NOTE | 2019-08-17 01:23 | PDOC ---
History of Present Illness - General Chief Complaint: Allergic Reaction Stated Complaint: ALLERGIC REACTION Time Seen by Provider: 08/17/19 01:08 History Source: Patient Exam Limitations: No Limitations - History of Present Illness Initial Comments: 08/17/19 01:19 This is a 58-year-old female who comes in complaining of a allergic reaction. Patient said she is allergic to something she ate earlier and now has diffuse redness and itching. Patient took a total of 100 mg of Benadryl without relief so comes in for evaluation. Patient said the last time this happened that she got some IV steroids which helped and then went home on a Medrol Dosepak. Patient denies any cough, congestion or shortness of breath. Patient denies any sensation that her throat is closing or swelling. Allergies: as per nursing notes Past Medical History: none Social history: Lives with family. No smoking. No alcohol. No illicit drugs. Surgical history: None General: No fevers or chills, no weakness, no weight loss HEENT: No change in vision. No sore throat,. No ear pain CardioVascular: no chest discomfort. No shortness of breath Respiratory:No cough, or wheezing. Gastrointestinal: no nausea, vomiting, diarrhea or constipation, No rectal bleeding Genitourinary: No dysuria, hematuria, or frequency Musculoskeletal: No joint or muscle pain or swelling Neurologic: No headache, vertigo, dizziness or loss of consciousness Psychiatric: nor depression Skin: No rashes or easy bruising Endocrine: no increased thirst or abnormal weight change Allergic: Redness and itching of skin/allergic reaction All other systems reviewed and normal GENERAL: The patient is awake, alert, and fully oriented, in no acute distress. HEENT:Head is normal with no signs of trauma. Eyes: Pupils equal, round and reactive to light, Ears, and Throat are normal. Neck is supple. No Lymphadenopathy. EXTREMITIES:atraumatic, Normal range of motion, no edema. NEUROLOGICAL: Normal speech, normal gait. PSYCH: Normal mood, normal affect. SKIN: Warm, Dry, normal turgor, there is diffuse erythema of extremities chest and back with a few hives. lesions noted. None Solu-Medrol 125 IV and a Medrol Dosepak was sent to her pharmacy. Patient discharged we will follow-up with her primary care doctor Past History - Past Medical History Allergies/Adverse Reactions: Allergies Allergy/AdvReac Type Severity Reaction Status Date / Time exenatide microspheres Allergy Intermediate muscle Verified 03/04/19 14:58 [From Bydureon] welts/lumps very pruritic celecoxib [From Celebrex] Allergy Verified 03/04/19 14:58 erythromycin base Allergy Verified 03/04/19 14:58 Sulfa (Sulfonamide Allergy Verified 03/04/19 14:58 Antibiotics) msg Allergy Uncoded 03/04/19 14:58 Home Medications: Ambulatory Orders Lisinopril 5 mg PO DAILY 10/25/16 Metformin HCl [Glucophage] 2,000 mg PO HS 10/25/16 Simvastatin 20 mg PO HS 10/25/16 Solifenacin Succinate [Vesicare -] 5 mg PO DAILY 10/25/16 Ubidecarenone [Coq-10] 100 mg PO DAILY 10/25/16 Solifenacin Succinate [Vesicare] 10 mg PO DAILY tablet 11/29/16 Cyclobenzaprine HCl [Flexeril 10 mg] 10 mg PO TID PRN #12 tablet 03/04/19 Methylprednisolone [Medrol Dose Ron] 4 mg PO ASDIR #21 tablet 08/17/19 Cardiac Disorders: Yes (SVT/MVP) COPD: No Diabetes: Yes HTN: No Hypercholesterolemia: Yes - Surgical History Orthopedic Surgery: Yes (PARTIAL LEFT MINESECTOMY) - Psycho Social/Smoking Cessation Hx Smoking Status: No Smoking History: Never smoked Have you smoked in the past 12 months: No Number of Cigarettes Smoked Daily: 0 Hx Alcohol Use: Yes (OCCASIONAL) Drug/Substance Use Hx: No Substance Use Type: None Hx Substance Use Treatment: No *Physical Exam - Vital Signs Last Vital Signs Temp Pulse Resp BP Pulse Ox 97.9 F 104 H 16 133/94 99 08/17/19 01:06 08/17/19 01:06 08/17/19 01:06 08/17/19 01:06 08/17/19 01:06 Discharge - Discharge Information Problems reviewed: Yes Clinical Impression/Diagnosis: Allergic reaction Qualifiers: Encounter type: initial encounter Qualified Code(s): T78.40XA - Allergy, unspe cified, initial encounter Condition: Stable Disposition: HOME - Admission No - Follow up/Referral Referrals: Deya Holt [Primary Care Provider] - - Patient Discharge Instructions Additional Instructions: Get the prescription filled for the Medrol Dosepak and take as prescribed Return to the emergency department immediately with ANY new, persistent or worsening symptoms. Continue any medications as previously prescribed by your physician. You should follow up with your primary doctor as soon as possible regarding today's emergency department visit. . Please make sure your doctor reviews the results of your emergency evaluation. Thank you for coming to the Emergency Department today for your care. It was a pleasure to see you today. Please note that your evaluation is INCOMPLETE until you follow-up with your doctor. - Post Discharge Activity
== END 2019-08-17 01:37 | disposition home or self-care (01) ==
LOC: FER 01:03
PROC: 3E033GC Introduction of Other Therapeutic Substance into Peripheral Vein, Percutaneous Approach (ICD-10-PCS; principal; 2019-08-17)
DX: T78.40XA Allergy, unspecified, initial encounter (principal); Z88.8 Allergy status to other drugs, medicaments and biological substances; E11.9 Type 2 diabetes mellitus without complications; E78.00 Pure hypercholesterolemia, unspecified; I47.1 Supraventricular tachycardia
CPT/HCPCS: 99283-25

== ENCOUNTER 2020-11-24 13:15 | Emergency (ER) | payer OTHER ==
[2020-11-24 13:46] VITALS: BP 137/73; PULSE 111; TEMP 99.6; BMI 23.3
[2020-11-24 14:00] LABS: BASO % 1.3 % (0-2.0); EOS % 2.8 % (0-4.5); HEMATOCRIT 44.1 % (32.4-45.2); HEMOGLOBIN 15.3 GM/dl (10.7-15.3); LYMPH % 22.5 % (8-40); MCH 30.3 pg (25.7-33.7); MCHC 34.8 g/dl (32.0-36.0); MEAN CELL VOLUME 87.1 fl (80-96); MEAN PLT VOLUME 9.2 fl (7.5-11.1); NEUT % 65.4 % (42.8-82.8); PLATELET COUNT 269 10^3/uL (134-434); RBC 5.06 M/mm3 (3.60-5.2); RDW 12.4 % (11.6-15.6); WHITE BLOOD COUNT 11.1 K/mm3 (4.0-10.8)
[2020-11-24 14:15] LABS: ALBUMIN 4.5 g/dl (3.4-5.0); ALK PHOS 70 U/L (45-117); ANION GAP 12 MMOL/L (8-16); CALCIUM 10.5 mg/dl (8.5-10); CHLORIDE 101 mmol/L (98-107); CO2 26 mmol/L (21-32); CREATININE 0.6 mg/dl (0.55-1.3); GLUCOSE,RANDOM 129 mg/dl (74-106); SGOT/AST 15 U/L (15-37); SGPT/ALT 18 U/L (13-61); SODIUM 139 mmol/L (136-145); TOT PROT 7.5 g/dl (6.4-8.2)
[2020-11-24] MEDS ORDERED: ONDANSETRON *ODT* 4 MG TABLET SL ONE (15:15)
[2020-11-24] MEDS ORDERED: ONDANSETRON *ODT* 4 MG TABLET ONE (15:22)
[2020-11-24 15:26] LABS: LIPASE 119 U/L (73-393)
== END 2020-11-24 15:40 | disposition home or self-care (01) ==
LOC: FER 13:15
DX: K80.50 Calculus of bile duct without cholangitis or cholecystitis without obstruction (principal)
CPT/HCPCS: 36415; 76705-TC; 80053; 82550; 83690; 84484; 85025; 99284-25; Q0162